=== PATIENT | male | born 1940 | race Two or more races ===

== ENCOUNTER 2023-09-13 11:12 | Emergency (ER) | payer OTHER ==
[~2023-09-13] VITALS: Ht 167.6 cm; Wt 62.6 kg
[2023-09-13] MEDS ORDERED: LIPITOR40 M1 (12:55)
[2023-09-13] MEDS ORDERED: CARVEDILOL12.5 MG (12:55)
== END 2023-09-13 14:48 | disposition home or self-care (01) ==
LOC: ER 11:12
DX: S20.229A Contusion of unspecified back wall of thorax, initial encounter (principal); S61.209A Unspecified open wound of unspecified finger without damage to nail, initial encounter; W19.XXXA Unspecified fall, initial encounter; Y93.9 Activity, unspecified; Y92.9 Unspecified place or not applicable; Y99.9 Unspecified external cause status
CPT/HCPCS: 12002; 72100; 96372; 99283; J1885

== ENCOUNTER 2023-10-07 19:44 | Emergency (ER) | payer OTHER ==
[~2023-10-07] VITALS: Ht 160 cm; Wt 69.4 kg
[~2023-10-07 19:44] MED LIST: CARVEDILOL12.5 MG; LIPITOR40 M1
[2023-10-07] MEDS ORDERED: GLIMEPIRIDE1 M1 PO (20:36)
[2023-10-07] MEDS ORDERED: ARICEPT10 MG PO (20:37)
== END 2023-10-07 22:50 ==
LOC: ER 19:44
DX: Z48.02 Encounter for removal of sutures (principal)